=== PATIENT | female | born 1950 | race Hispanic/Latino ===

== ENCOUNTER 2019-04-30 12:32 | Emergency (ER) | payer MEDICARE ==
[2019-04-30] MEDS ORDERED: TETANUS/DIPHTHERIA TOXOID [ADULT] 0.5 ML VIAL IM ONE (12:43)
[2019-04-30] MEDS ORDERED: ACETAMINOPHEN EXTRA STRENGTH 500 MG TABLET ONE (12:54)
== END 2019-04-30 15:56 | disposition home or self-care (01) ==
LOC: EDH 12:32
DX: S00.83XA Contusion of other part of head, initial encounter (principal); S80.211A Abrasion, right knee, initial encounter; S80.212A Abrasion, left knee, initial encounter; M19.90 Unspecified osteoarthritis, unspecified site; W01.0XXA Fall on same level from slipping, tripping and stumbling without subsequent striking against object, initial encounter; Y93.01 Activity, walking, marching and hiking; Y92.89 Other specified places as the place of occurrence of the external cause; Y99.8 Other external cause status
CPT/HCPCS: 70450; 70486; 72125; 90471; 90714

== ENCOUNTER → 2020-01-12 | Outpatient (CLI) | payer MEDICARE ==
[~2020-01-12] MED LIST: IOHEXOL-350 50ML VIAL IV ONE
== END | disposition home or self-care (01) ==
LOC: RAH 12:37
PROVIDERS: ATTEND Family Medicine
DX: M17.0 Bilateral primary osteoarthritis of knee (principal); R22.1 Localized swelling, mass and lump, neck; R22.2 Localized swelling, mass and lump, trunk; M25.561 Pain in right knee
CPT/HCPCS: 70492; 73560; Q9967

== ENCOUNTER 2022-08-31 11:19 | Emergency (ER) | payer OTHER, MEDICARE ==
[~2022-08-31] VITALS: Ht 152.4 cm; Wt 120.2 kg
[2022-08-31 13:02] LABS: BASOPHILS % (AUTO) 0.4 % (0.0-5.0); EOSINOPHILS % (AUTO) 1.3 % (0.0-8.0); HEMATOCRIT 30.8 % (36-48); LYMPHOCYTES % (AUTO) 11.1 % (21.0-51.0); MEAN CORPUSCULAR HEMOGLOBIN 29.4 pg (27.0-33.0); MEAN CORPUSCULAR HGB CONC 34.1 g/dL (32.0-36.0); MEAN CORPUSCULAR VOLUME 86.3 fL (79-99); MONOCYTES % (AUTO) 6.4 % (3.0-13.0); NEUTROPHILS % (AUTO) 80.4 % (40.0-77.0); PLATELET COUNT (AUTO) 312 K/uL (130-400); RED BLOOD CELL COUNT(AUTO) 3.57 MIL/uL (4.00-5.50); RED CELL DISTRIBUTION WIDTH 13.4 % (11.0-15.5); WHITE BLOOD COUNT (AUTO) 10.4 K/uL (4.8-10.8)
[2022-08-31 14:06] LABS: ALBUMIN 3.1 g/dL (3.5-5.0); POTASSIUM 3.2 mmol/L (3.5-5.1); TOTAL PROTEIN, SERUM 6.7 g/dL (6.0-8.3)
[2022-08-31] MEDS ORDERED: IOHEXOL-350 50ML VIAL IV ONE (14:40)
[2022-08-31 15:51] VITALS: BP 147/63
== END 2022-08-31 16:16 | disposition home or self-care (01) ==
LOC: EDH 11:19
DX: S93.401A Sprain of unspecified ligament of right ankle, initial encounter (principal); R22.1 Localized swelling, mass and lump, neck; W18.39XA Other fall on same level, initial encounter; Y93.89 Activity, other specified; Y92.89 Other specified places as the place of occurrence of the external cause; Y99.8 Other external cause status
CPT/HCPCS: 36415; 70486; 73620; 80053; 82948; 84484; 85025; 93005; Q9967